=== PATIENT | female | born 1945 | race Caucasian/White ===

== ENCOUNTER 2017-07-20 15:23 | Emergency (ER) | payer MEDICARE ==
[~2017-07-20 15:23] MED LIST: CLONAZEPAM0.5 MG PO
== END 2017-07-20 17:19 | disposition home or self-care (01) ==
LOC: ER 15:23
DX: J44.1 Chronic obstructive pulmonary disease with (acute) exacerbation (principal); Z87.891 Personal history of nicotine dependence; Z79.899 Other long term (current) drug therapy; Z88.2 Allergy status to sulfonamides; Z88.5 Allergy status to narcotic agent
CPT/HCPCS: 36415; 96374